=== PATIENT | male | born 1955 | race Caucasian/White ===

== ENCOUNTER 2016-11-12 05:24 | Day surgery (SDC) | payer BC ==
[2016-11-06 09:29] LABS: HEMATOCRIT 43.7 % (40.0-51.0); HEMOGLOBIN 14.9 g/dL (13.6-17.8)
[2016-11-06 09:54] LABS: BUN (BLOOD UREA NITROGEN) 16 MG/DL (6-23); CALCIUM, SERUM 9.1 MG/DL (8.5-10.4); CHLORIDE, SERUM 108 MMOL/L (96-112); CO2 (CARBON DIOXIDE) 29 MMOL/L (24-34); CREATININE 0.91 MG/DL (0.70-1.30); GFR AFRICAN AMERICAN 105 ML/MIN (>=60); GFR NON AFRICAN AMERICAN 91 ML/MIN (>=60); GLUCOSE, SERUM 81 MG/DL (60-99); POTASSIUM, SERUM 4.1 MMOL/L (3.5-5.3); SODIUM, SERUM 142 MMOL/L (135-148)
--- NOTE | ~2016-11-12 | OP ---
Record Of Operation [facility] [address] [place]. [address] NAME: AMRCELINA BENITEZ : 55 STATUS : [facility] UNIT#: [id number] AGE: 61 ADM/REG DATE : 11/12/16 MR#: [id number] REPORT SERV DATE: 11/12/16 DICTATED BY: CHILO LOPEZ III DATE: 11/12/16 REPORT STATUS : Draft TRANSCRIBED BY: MODJarod DATE: 11/12/16 DATE OF PROCEDURE: 11/12/2016 PREOPERATIVE DIAGNOSIS: Enlarging symptomatic soft tissue neoplasm of the posterior neck or lower scalp. POSTOPERATIVE DIAGNOSIS: Enlarging symptomatic soft tissue neoplasm of the posterior neck or lower scalp. PROCEDURE: Wide resection of the large mass of the posterior neck and posterior scalp. ANESTHESIA: General with intubation. COMPLICATIONS: None. ESTIMATED BLOOD LOSS: Less than 5 mL. SPECIMEN: Mass. DRAINS: None. LAP AND SPONGE COUNT: Correct x3. HISTORY: This 61-year-old male presented with an enlarging symptomatic soft tissue mass over the posterior scalp or upper neck. It was felt that wide resection of this was indicated for both diagnostic and therapeutic reasons. This procedure, the risks, benefits, and alternatives, including but not limited to the risk for bleeding, infection, pain, swelling, scarring, deformity to the area, seroma formation, hematoma formation, nerve injury, chronic paresthesias, pain, numbness, neuralgia or neuroma, spinal accessory nerve injuries, muscle weakness or paralysis of the muscles of upper back or shoulder, and unforeseen complications including deep venous thrombosis, pulmonary embolus, myocardial infarction, stroke, pneumonia, and were fully explained to the patient prior to the surgery. His questions were answered. He understood the risks and agreed to the surgery as planned. DESCRIPTION OF PROCEDURE: After being properly identified, and after discussing the risks and benefits of the surgery with him again in the preoperative area, and after identifying the lesion with him in the preoperative area, the patient was taken to the operating room, and placed in the supine position on a stretcher adjacent to the operating room table. General anesthesia was administered. He was intubated without difficulty. He was then carefully rolled into the prone position on the operating room table. This was done very carefully and meticulously. Appropriate pads were placed beneath his extremities and chest. The upper back, neck, and posterior scalp were prepped and draped sterilely in the usual fashion. After an appropriate "time-out" per [facility] standards, a transverse incision was made directly over the mass. The incision was continued through the subcutaneous tissue. A well-defined, well-encapsulated mass was identified. This mass was some 6 cm to 8 cm in diameter. The entire mass was resected. The mass was extended down to the muscle. At no Record Of Operation [address] [address] NAME: MARCELINA BENITEZ : 55 STATUS : [facility] PAT#: [id number] AGE: 61 ADM/REG DATE : 11/12/16 MR#: [id number] REPORT SERV DATE: 11/12/16 DICTATED BY: CHILO LOPEZ III DATE: 11/12/16 REPORT STATUS : Draft TRANSCRIBED BY: DESHAWN DATE: 11/12/16 point any neurovascular structures were encountered or injured. The entire mass was resected. Hemostasis was assured. The subcutaneous tissue was closed with interrupted 3-0 Vicryl suture. The skin was closed with a running subcuticular 4-0 Monocryl stitch. The incision was injected with 0.5% Marcaine. Dressings were applied. Anesthesia was reversed. The patient was taken to the recovery room in stable condition. He tolerated the procedure well. His family was informed the results of the surgery. The patient will be discharged when stable and comfortable. His family was advised that he should keep his wound clean and dry for 48 hours, that he should not drive for two to three days after surgery or while using narcotics, and that he should resume his usual medications. He has been asked to return in two weeks for followup or sooner if any fever, chills, wound drainage, or other problems prior to that time. He was given a prescription for Percocet 7.5 one t.i.d., #12, as needed for pain, which he was advised not to use while driving. RNEÉ/DESHAWN Chilo Lopez III, M.D. / [id number] CC: Peg Puri III, M.D.
--- NOTE | ~2016-11-12 | PREOPHP ---
PreOp History and Physical [address] [place]. [address] NAME: MARCELINA BENITEZ : 55 STATUS : REG [facility] PAT#: [id number] AGE: 61 ADM/REG DATE : 11/12/16 MR#: [id number] REPORT SERV DATE: 11/12/16 DICTATED BY: CHILO LOPEZ III DATE: 10/15/16 REPORT STATUS : Draft TRANSCRIBED BY: DESHAWN DATE: 10/15/16 HISTORY OF PRESENT ILLNESS: This 61-year-old male comes to the operating room for resection of a soft tissue mass over his posterior neck. The patient has a large mass over his right posterior neck. This mass has been present for 15 to 20 years. It has been increasing slowly in size. He comes now for resection of this mass as it has become progressively symptomatic. PAST MEDICAL HISTORY: 1. Hypertension. 2. Cerebrovascular accident in the past. 3. Back pain. MEDICATIONS: 1. Triamterene. 2. Tamsulosin. 3. Verapamil. 4. Sumatriptan. 5. Meloxicam. 6. Sulfasalazine. 7. Tramadol. 8. Fish oil. 9. Aspirin. ALLERGIES: NONE. FAMILY HISTORY: Positive for heart disease and cancer. SOCIAL HISTORY: The patient has a previous history of tobacco use. He has no history of alcohol use. REVIEW OF SYSTEMS: The patient complains constipation and back pain. His 14-point review of systems is otherwise unremarkable except for tingling and numbness. PHYSICAL EXAMINATION: OBJECTIVE PHYSICAL EXAM: GENERAL: This is a male, in no acute distress. He is alert and oriented x3. VITAL SIGNS: Blood pressure 124/74, pulse 80, and temperature 97.3. HEENT: Remarkable for a large posterior neck mass. The mass was to the right of the midline. It was about 7 cm in size. It is soft, discrete, mobile, and nontender. Supraclavicular area is normal with no adenopathy. Axilla normal with no adenopathy. LUNGS: Clear. CARDIAC: Normal. EXTREMITIES: Normal. ASSESSMENT: PreOp History and Physical [address] [address] NAME: MARCELINA BENITEZ : 55 STATUS : REG [facility] PAT#: [id number] AGE: 61 ADM/REG DATE : 11/12/16 MR#: [id number] REPORT SERV DATE: 11/12/16 DICTATED BY: CHILO LOPEZ III DATE: 10/15/16 REPORT STATUS : Draft TRANSCRIBED BY: DESHAWN DATE: 10/15/16 1. A 61-year-old male with enlarging symptomatic soft tissue neoplasm of the posterior neck, to the right of the midline. 2. Hypertension. 3. Transient ischemic attack or cerebrovascular accident in the past. 4. Chronic back pain. PLAN: The patient comes to the operating room now for resection of this mass of the posterior neck. This procedure, the risks, benefits, and alternatives, including but not limited to the risk for bleeding, infection, pain, swelling, scarring, deformity to the area, seroma formation, hematoma formation, nerve injury, chronic paresthesia, pain, numbness, neuralgia or neuroma, spinal accessory nerve injury with muscle weakness or paralysis in the muscles of upper back or shoulder, and unforeseen complications including deep venous thrombosis, pulmonary embolus, myocardial infarction, stroke, pneumonia, and , have been explained to the patient prior to surgery. The expected length of recovery was explained. Possible need for drain after surgery has been explained. The patient's questions have been answered. He understands the risks and agrees to the surgery as planned. RENÉ/DESHAWN Chilo Lopez III, M.D. / [id number]
[~2016-11-12 05:24] MED LIST: ASAB PO; AZULFENTAB PO; FISH-EPA1000 MG PO; FLOMAX4 PO; IMITREX100 MG PO; MAX25 PO; MOBIC15 MG PO; ULTRACET PO; VERELAN120 MG PO
[2016-11-12 06:23] LABS: BASOPHILS 0.2 %; BASOPHILS ABSOLUTE 0.01 10/3/uL (0.0-0.16); EOSINOPHILS 1.6 %; EOSINOPHILS ABSOLUTE 0.09 10/3/uL (0.0-0.53); HEMATOCRIT 43.8 % (40.0-51.0); HEMOGLOBIN 15.3 g/dL (13.6-17.8); IMMATURE GRANULOCYTES 0.2 %; IMMATURE GRANULOCYTES ABSOLUTE 0.01 10/3/uL (0.0-0.11); LYMPHOCYTES 28.3 %; MEAN CORPUS HGB CONC 34.9 g/dL (32.0-36.0); MEAN CORPUSCULAR HEMOGLOB 30.4 pg (26.0-34.0); MEAN CORPUSCULAR VOLUME 87.1 fL (80-100); MEAN PLATELET VOLUME 10.4 fL (9.2-13.0); MONOCYTES 9.5 %; MONOCYTES ABSOLUTE 0.54 10/3/uL (0.21-1.20); NEUTROPHILS 60.2 %; NEUTROPHILS ABSOLUTE 3.41 10/3/uL (2.02-8.40); PLATELET COUNT 191 10/3/uL (150-400); RBC DISTRIBUTION WIDTH 13.3 % (12.0-16.0); RED CELL COUNT 5.03 10/6/uL (4.7-6.1); WHITE BLOOD CELLS 5.7 10/3/uL (4.5-10.5)
[2016-11-12 06:24] LABS: MANUAL DIFF NO %
== END 2016-11-12 09:49 | disposition home or self-care (01) ==
LOC: SDC 05:24
PROVIDERS: Surgery
PROC: 0WB60ZX Excision of Neck, Open Approach, Diagnostic (ICD-10-PCS; principal; 2016-11-12 06:45)
DX: E65 Localized adiposity (principal); I10 Essential (primary) hypertension; G89.29 Other chronic pain; M54.9 Dorsalgia, unspecified; Z86.73 Personal history of transient ischemic attack (TIA), and cerebral infarction without residual deficits; Z87.891 Personal history of nicotine dependence; Z82.49 Family history of ischemic heart disease and other diseases of the circulatory system; Z98.890 Other specified postprocedural states
CPT/HCPCS: 80048; 85014; 85018; 85025; 88304; 93005; J0690; J2250; J2405; J2710; J3010